=== PATIENT | female | born 1985 | race Caucasian/White ===

== ENCOUNTER 2023-01-10 07:07 | Emergency (ER) | payer BC ==
[~2023-01-10] VITALS: Ht 170.2 cm; Wt 59.0 kg
[2023-01-10 07:27] VITALS: BP_SYST 125
--- NOTE | 2023-01-10 07:33 | NUR ---
Patient to ER bed 08 to gown for evaluation. Side rails up. Report given to NILDA ROMERO.
--- NOTE | 2023-01-10 07:55 | NUR ---
ER at bedside examining patient.
[2023-01-10] MEDS ORDERED: ACETAMINOPHEN 500 MG TABLET PO ONE (08:15)
[2023-01-10 08:16] LABS: BASOPHILS % (AUTO) 0.3 % (0.0-2.0); EOSINOPHILS % (AUTO) 0.2 % (0.0-4.0); HEMATOCRIT 39.3 % (36-48); HEMOGLOBIN 13.2 g/dL (12.0-16.0); LYMPHOCYTES # (AUTO) 0.5 K/uL (1.0-5.5); MEAN CORPUSCULAR HEMOGLOBIN 30 pg (27-31); MEAN CORPUSCULAR HGB CONC 34 % (32-36); MEAN CORPUSCULAR VOLUME 90 fL (79.0-98.0); MONOCYTES # (AUTO) 0.5 K/uL (0.0-1.0); MONOCYTES % (AUTO) 8.9 % (1.7-9.3); NEUTROPHILS # (AUTO) 4.4 K/uL (1.8-7.7); NEUTROPHILS % (AUTO) 80.6 % (40.0-70.0); PLATELET COUNT (AUTO) 167 K/uL (130-430); RED BLOOD CELL COUNT(AUTO) 4.35 MIL/uL (4.2-6.2); WHITE BLOOD COUNT (AUTO) 5.4 K/uL (4.8-10.8)
[2023-01-10 08:21] LABS: CALCIUM 8.1 mg/dL (8.4-11.0); CREATININE 0.64 mg/dL (0.55-1.30)
[2023-01-10] MEDS ORDERED: ACETAMINOPHEN 500 MG TABLET ONE (08:23)
--- NOTE | 2023-01-10 08:28 | NUR ---
Urine specimen collected hcg negative, specimen sent to lab.
[2023-01-10 08:42] LABS: ALBUMIN 3.4 g/dL (3.4-4.8); TOTAL BILIRUBIN 0.3 mg/dL (0.0-1.0)
[2023-01-10 08:45] LABS: STREPTOCOCCUS A SCREEN (RAPID) NEGATIVE (NEGATIVE)
[2023-01-10 08:50] LABS: BILIRUBIN,URINE NEGATIVE (NEGATIVE); CLARITY/URINE CLEAR (CLEAR); COLOR,URINE YELLOW (YELLOW); GLUCOSE,URINE NEGATIVE (NEGATIVE); KETONES,URINE 1+ (NEGATIVE); LEUKOCYTE ESTERASE ,URINE NEGATIVE (NEGATIVE); NITRITE, URINE NEGATIVE (NEGATIVE); PROTEIN URINE 1+ (NEGATIVE)
[2023-01-10 08:56] LABS: BLOOD, URINE TRACE (NEGATIVE)
[2023-01-10 09:00] LABS: BACTERIA,URINE RARE /HPF (None Seen); MUCUS,URINE 1+ /LPF (None Seen); RBC,URINE 0-3 /HPF (0-3); WBC,URINE 0-3 /HPF (0-3)
--- NOTE | 2023-01-10 09:23 | NUR ---
POC HCG negative. Quantitive blood test 10. notified pt.
[2023-01-10] MEDS ORDERED: ONDA-8 TL (09:54)
--- NOTE | 2023-01-10 09:59 | NUR ---
Pt complains of nausea, medicated per MD order.
[2023-01-10] MEDS ORDERED: ONDANSETRON 4 MG ODT TAB PO ONE (10:00)
[2023-01-10 10:10] VITALS: BP_SYST 125
--- NOTE | 2023-01-10 10:10 | NUR ---
Patient given written and verbal discharge instructions and verbalizes understanding. ER MD discussed with patient the results and treatment provided. Patient in stable condition. ID arm band removed. Rx of zofran given. Patient educated on pain management and to follow up with PMD. Pain Scale .Opportunity for questions provided and answered. Medication side effect fact sheet provided.
[2023-01-11] MEDS ORDERED: IBUP-1969 PO (01:40)
== END 2023-01-10 10:10 | disposition home or self-care (01) ==
LOC: SED 07:07
DX: O99.511 Diseases of the respiratory system complicating pregnancy, first trimester (principal); J02.9 Acute pharyngitis, unspecified; O26.891 Other specified pregnancy related conditions, first trimester; Z3A.01 Less than 8 weeks gestation of pregnancy; Z79.899 Other long term (current) drug therapy; Z20.822 Contact with and (suspected) exposure to COVID-19
CPT/HCPCS: 99283; 87426; 80053; 81000; 84702; 85025; 86308; 86403; 36415; 87081; 87804 ×2; Q0162

== ENCOUNTER 2023-01-10 20:36 | Emergency (ER) | payer BC ==
[~2023-01-10] VITALS: Ht 170.2 cm; Wt 59.0 kg
[~2023-01-10 20:36] MED LIST: ONDA-8 TL
[2023-01-10 20:39] VITALS: BP_SYST 145
[2023-01-10 21:41] LABS: BASOPHILS # (AUTO) 0.1 K/uL (0.0-0.2); BASOPHILS % (AUTO) 1.2 % (0.0-2.0); EOSINOPHILS % (AUTO) 0.1 % (0.0-4.0); HEMATOCRIT 39.7 % (36-48); HEMOGLOBIN 13.2 g/dL (12.0-16.0); LYMPHOCYTES # (AUTO) 0.7 K/uL (1.0-5.5); LYMPHOCYTES % (AUTO) 15.4 % (20.5-51.5); MEAN CORPUSCULAR HEMOGLOBIN 30 pg (27-31); MEAN CORPUSCULAR HGB CONC 33 % (32-36); MEAN CORPUSCULAR VOLUME 90 fL (79.0-98.0); MONOCYTES # (AUTO) 0.3 K/uL (0.0-1.0); MONOCYTES % (AUTO) 6.3 % (1.7-9.3); NEUTROPHILS # (AUTO) 3.7 K/uL (1.8-7.7); PLATELET COUNT (AUTO) 173 K/uL (130-430); RED BLOOD CELL COUNT(AUTO) 4.39 MIL/uL (4.2-6.2); WHITE BLOOD COUNT (AUTO) 4.8 K/uL (4.8-10.8)
[2023-01-10] MEDS ORDERED: DIPHENHYDRAMINE INJ 50 MG/ML VIAL IVP ONE (22:30)
[2023-01-10] MEDS ORDERED: PROCHLORPERAZINE EDISYLATE 10 MG/2 ML VIAL IVP ONE (22:30)
[2023-01-10] MEDS ORDERED: NACL 0.9% 1,000 ML IV ONE (23:00)
[2023-01-11] MEDS ORDERED: IBUP-1969 PO (01:40)
[2023-01-11] MEDS ORDERED: KETOROLAC TROMETHAMINE 15 MG VIAL IVP ONE (01:45)
[2023-01-11 02:15] VITALS: BP_SYST 136
== END 2023-01-11 02:21 | disposition home or self-care (01) ==
LOC: SED 20:36
DX: O03.9 Complete or unspecified spontaneous abortion without complication (principal); O29.41 Spinal and epidural anesthesia induced headache during pregnancy, first trimester; O98.511 Other viral diseases complicating pregnancy, first trimester; Z3A.01 Less than 8 weeks gestation of pregnancy; Z79.899 Other long term (current) drug therapy
CPT/HCPCS: 99285; 96374; 76801; 96361; 96375 ×2; 84702; 85025; 36415; 76817; J1200; J0780; J7030; J1885